=== PATIENT | female | born 2000 | race Caucasian/White ===

== ENCOUNTER 2023-03-28 17:23 | Emergency (ER) | payer SELFPAY ==
[2023-03-28 17:29] VITALS: BP 111/65; PULSE 122; RESP 18; TEMP 36.8; O2SAT 100; BMI 27.4
[2023-03-28] MEDS: metoclopramide 5 mg/mL SDV 2 mL 10 MG IVP (18:26)
[2023-03-28] MEDS: diphenhydrAMINE 50 mg/mL SDV 1mL IVP (18:27)
[2023-03-28] MEDS: sodium chloride 0.9% 1,000 ML 999 ML IV ×2 (18:28→20:48)
[2023-03-28 18:31] VITALS: BP 114/87; PULSE 115; RESP 25; O2SAT 97
[2023-03-28 18:39] LABS: Basophils # 0.1 10^3/uL (0.0-0.1); Basophils % 0.7 %; Hematocrit 46.1 % (36-47); Lymphocytes # 1.6 10^3/uL (1.5-6.5); Lymphocytes % 17.6 %; Mean Corpuscular HGB Conc 34.3 g/dL (30-55); Mean Corpuscular Hemoglobin 28.3 pg (27-33); Mean Corpuscular Volume 82.6 fl (85-98); Monocytes # 0.4 10^3/uL (0.2-0.9); Neutrophils % 76.2 %; Nucleated Red Blood Cells % 0 %; Platelet Count 318 10^3/cmm (157-399); Red Blood Count 5.58 10^6/uL (3.85-5.65); White Blood Count 8.79 10^3/uL (4.5-13.0)
[2023-03-28 18:50] LABS: Alanine Aminotransferase 22 U/L (0-33); Albumin Level 4.7 g/dL (3.5-5.2); Alkaline Phosphatase 58 U/L (35-105); Anion Gap 18.9 (5-19); Aspartate Amino Transferase 24 U/L (0-32); Blood Urea Nitrogen 10 mg/dL (6-20); Calcium 9.7 mg/dL (8.5-10.5); Carbon Dioxide 22 mmol/L (22-29); Chloride 102 mmol/L (98-107); Globulin 3.3 g/dL (1.3-4.6); Glomerular Filtration Rate 157.3 mL/min (90-130); Glucose 77 mg/dL (65-115); Lipase 27 U/L (13-60); Osmolality Calculated 286 mOsm/kg (285-295); Potassium 3.9 mmol/L (3.5-5.1); Sodium 139 mmol/L (136-145); Total Bilirubin 0.5 mg/dL (0.15-1.2)
[2023-03-28 19:00] VITALS: O2SAT 99
--- NOTE | 2023-03-28 19:12 | ED_ITS ---
HPI - Nausea/Vomiting/Diarrhea General: Chief complaint: Nausea/Vomiting/Diarrhea Stated complaint: puking and preg not sure how far Time Seen by Provider: 03/28/23 17:59 Source: patient Mode of arrival: ambulatory Limitations: no limitations History of Present Illness: 22-year-old female is currently roughly 10 weeks she states that over the last 2 days she has had vomiting states she has not been able to tolerate any p.o. fluids. She states she dealt with vomiting with her previous as well. She had some abdominal cramping denies any severe abdominal pain she has had a cholecystectomy. She denies any vaginal bleeding or discharge she has not seen her OB yet she is scheduled for her first visit tomorrow. Associated nausea: Yes Associated symtoms: Reports nausea; Denies chest pain, dysuria or headache(s) Review of Systems Const: Denies: fever(s), chills, body aches or change in appetite Eyes: Denies: eye discomfort ENMT: Denies: throat pain or dental pain Card: Denies: chest pain Resp: Denies: dyspnea GI: Reports: abdominal pain, nausea and vomiting; Denies: diarrhea : Denies: dysuria Musc: Denies: neck pain or back pain Skin/Breast: Denies: rash Neuro: Denies: headache(s) Physical Exam Const: COMMON NORMALS: patient oriented x3 HENMT: COMMON NORMALS: normocephalic and atraumatic HEAD & SCALP: normocephalic and atraumatic Eye: COMMON NORMALS: Equal, round and reactive pupils present and EOMs intact bilaterally PUPIL: Yes Equal, round and reactive pupils present Neck/C-Spine: COMMON NORMALS: full ROM and supple Chest: COMMONS NORMALS: normal inspection of the chest and normal palpation of entire chest wall Resp: COMMON NORMALS: normal respiratory effort Cardio: COMMON NORMALS: regular rhythm and No murmurs present (Cardio) RATE: tachycardic RHYTHM: regular rhythm GI: COMMON NORMALS: Normal to inspection, nondistended, normoactive bowel sounds present, Soft to palpation, non-tender and no masses PALPATION: Yes Soft to palpation Extremity: COMMON NORMALS: normal to inspection and full ROM Neuro: COMMON NORMALS: patient oriented x3, moves all extremities and no focal motor deficits Psych: COMMON NORMALS: mental status grossly normal, Normal thought process present and cooperative THOUGHT PROCESS: Normal thought process present Skin: COMMON NORMALS: no rashes or lesions noted and no wounds GENERAL SKIN EXAM: no rashes or lesions noted Course Vital Signs: Vital signs: Vital Signs Temperature 98.3 F 03/28/23 17:29 Pulse Rate 115 H 03/28/23 18:31 Respiratory Rate 25 H 03/28/23 18:31 Blood Pressure 114/87 03/28/23 18:31 Pulse Oximetry 97 03/28/23 18:31 Oxygen Delivery Me thod Room Air 03/28/23 18:31 MDM - Nausea/Vomiting/Diarrhea Medical Decision Making Patient presents here with vomiting in she feels much improved here after IV fluids and nausea meds she has been able to tolerate p.o. fluids here as well. Did a bedside ultrasound showed an IUP consistent with dates heart rate of 148 she has no other complaints she has an appointment tomorrow she is to follow-up as scheduled we will prescribe her Reglan. Medical Records I reviewed the patient's medical records. Lab Data I reviewed the patient's lab results. 03/28/23 18:03/28/23 18: Laboratory Results WBC 8.79 10^3/uL (4.5-13.0) 03/28/23 18: RBC 5.58 10^6/uL (3.85-5.65) 03/28/23 18: Hgb 15.80 g/dL (12.4-14.8) H 03/28/23 18: Hct 46.1 % (36-47) 03/28/23 18: MCV 82.6 fl (85-98) L 03/28/23 18: MCH 28.3 pg (27-33) 03/28/23 18: MCHC 34.3 g/dL (30-55) 03/28/23 18: RDW 12.0 % (12.1-15.1) L 03/28/23 18: Plt Count 318 10^3/cmm (157-399) 03/28/23 18: MPV 9.0 fL (7.4-10.4) 03/28/23 18: Neut % (Auto) 76.2 % 03/28/23 18: Lymph % (Auto) 17.6 % 03/28/23 18:23 [place] % (Auto) 5.0 % 03/28/23 18: Eos % (Auto) 0.0 % 03/28/23 18: Baso % (Auto) 0.7 % 03/28/23 18: Neut # (Auto) 6.70 10^3/uL (1.8-8.0) 03/28/23 18: Lymph # (Auto) 1.6 10^3/uL (1.5-6.5) 03/28/23 18: [place] # (Auto) 0.4 10^3/uL (0.2-0.9) 03/28/23 18: Eos # (Auto) 0.0 10^3/uL (0.0-0.8) 03/28/23: Baso # (Auto) 0.1 10^3/uL (0.0-0.1) 03/28/23 18: Nucleated RBC % (auto) 0 % 03/28/23 18: Nucleated RBCs # 0.0 /100WBC 03/28/23 18:23 Sodium 139 mmol/L (136-145) 03/28/23 18: Potassium 3.9 mmol/L (3.5-5.1) 03/28/23 18: Chloride 102 mmol/L (98-107) 03/28/23 18: Carbon Dioxide 22 mmol/L (22-29) 03/28/23 18: Anion Gap 18.9 (5-19) 03/28/23 18: BUN 10 mg/dL (6-20) 03/28/23 18: Creatinine 0.5 mg/dL (0.5-0.9) 03/28/23 18: GFR Calculation 157.3 mL/min (90-130) H 03/28/23 18: Glucose 77 mg/dL (65-115) 03/28/23 18: Calculated Osmolality 286 mOsm/kg (285-295) 03/28/23 18:23 Calcium 9.7 mg/dL (8.5-10.5) 03/28/23 18:23 Total Bilirubin 0.5 mg/dL (0.15-1.2) 03/28/23 18: AST 24 U/L (0-32) 03/28/23 18: ALT 22 U/L (0-33) 03/28/23 18:23 Alkaline Phosphatase 58 U/L (35-105) 03/28/23 18: Total Protein 8.0 g/dL (6.6-8.7) 03/28/23 18:23 Albumin 4.7 g/dL (3.5-5.2) 03/28/23 18: Globulin 3.3 g/dL (1.3-4.6) 03/28/23 18:23 Lipase 27 U/L (13-60) 03/28/23 18:23 Urine Color Yellow (Yellow) 03/28/23 19: Urine Appearance Sl hazy (CLEAR) A 03/28/23: Urine pH 6 (5-7) 03/28/23 19: Ur Specific [place] 1.025 (1.005-1.030) 03/28/23 19: Urine Protein Trace (Negative) 03/28/23 19: Urine Glucose (UA) Norm (Normal) 03/28/23 19:23 Urine Ketones 3+ (Negative) H 03/28/23 19:23 Urine Blood Neg (Negative) 03/28/23: Urine Nitrate Negative (Negative) 03/28/23: Urine Bilirubin 1+ (Negative) H 03/28/23 19:23 Urine Urobilinogen 1 mg/dL (Negative) H 03/28/23 19:23 Ur Leukocyte Esterase Trace (Negative) H 03/28/23 19:23 Urine RBC 0-4 /hpf (0-2) H 03/28/23 19:23 Urine WBC 5-10 /hpf (0-5) H 03/28/23 19:23 Ur Squamous Epith Cells 10-15 /hpf (0-5) H 03/28/23 19: Amorphous Sediment Not Reportable 03/28/23: Urine Bacteria Trace /hpf (NONE) 03/28/23: Urine Mucus 2+ /hpf 03/28/23 19: No radiology studies performed this visit Discharge Plan Discharge Patient Disposition: Home Clinical Impression: Vomiting affecting Condition: Stable Prescriptions: New Reglan 10 mg tablet 10 mg PO Q6H PRN (Reason: nausea and vomiting) Qty: 20 0RF Discharge Orders: Discharge ED (Routine); Ordered 03/28/23 Ordered By: Opal Jeffers Discharge Diet: Advance as tolerated Discharge Activity: Resume usual activity Patient Instructions: Hyperemesis Gravidarum (ED), Acute Nausea and Vomiting (ED) Coding Level of Care Code ED Corrosion Control Specialist for Brock Jackson
[2023-03-28 20:02] LABS: Add Urine Microscopic? YES; Bilirubin Urine 1+ (Negative); Blood Urine Neg (Negative); Glucose Urine UA Norm (Normal); Ketones Urine 3+ (Negative); Leukocyte Esterase Urine Trace (Negative); Nitrate Urine Negative (Negative); Protein Urine Trace (Negative); Specific Gravity, Urine 1.025 (1.005-1.030); Urine Appearance SL Hazy (CLEAR); Urine Color Yellow (Yellow); Urobilinogen Urine 1 mg/dL (Negative); pH Urine 6 (5-7)
[2023-03-28 20:03] LABS: Add Urine Culture? No; Bacteria Urine TRACE /hpf; Mucus Urine 2+ /hpf; RBC Urine 0-4 /hpf (0-2)
[2023-03-28 21:40] VITALS: O2SAT 100
== END 2023-03-28 21:33 | disposition home or self-care (01) ==
PROVIDERS: Emergency Provider Emergency Medicine
DX: O21.9 Vomiting of pregnancy, unspecified (principal); Z3A.10 10 weeks gestation of pregnancy
CPT/HCPCS: 80053; 81001; 83690; 85025; 96361; 96374; 96375; 99284; J1200; J2765; J7030